=== PATIENT | male | born 1935 | race Caucasian/White ===

== ENCOUNTER 2016-11-09 13:21 | Emergency (ER) | payer OTHER ==
[2016-11-09 13:41] VITALS: RESP 16; TEMP 97.7; O2SAT 92
--- NOTE | 2016-11-09 14:03 | EDPHY ---
H & P Smoking Status: Never smoked Time Seen by Provider: 11/09/16 13:45 HPI/ROS: CHIEF COMPLAINT: Head injury, scalp laceration HISTORY OF PRESENT ILLNESS: 81-year-old male presents to the emergency department by private vehicle with closed head injury. The patient was with his son and he was caring a heavy recliner down a set of stairs any missed the last step and fell hitting the corner of a wall. He sustained a laceration to the right posterior aspect of the scalp. He did not lose consciousness. Patient does take Plavix. He denies headache. Denies neck or back pain. Denies chest pain or difficulty breathing. Denies any presyncopal symptoms prior to his fall. Denies injury to upper lower extremity. Denies abdominal pain. Last tetanus shot was March 2013. REVIEW OF SYSTEMS: Constitutional: No fever, no chills. Eyes: No double or blurry vision. ENT: No sore throat. Respiratory: No cough, no shortness of breath. Cardiac: No chest pain. Gastrointestinal: No abdominal pain, vomiting or diarrhea. Genitourinary: No dysuria. Musculoskeletal: No neck or back pain. Skin: Scalp laceration as above. No rashes. Neurological: No headache. (BettinaCorie M) Past Medical/Surgical History: Cardiac stents, orthopedic surgeries (Bettina,Corie M) Social History: and lives in [place] (Bettina,Corie M) Physical Exam: General Appearance: Alert, no distress. Mentating normally and answering questions appropriately. Eyes: Pupils equal and round. Extraocular motions are all intact. ENT: Mouth: Mucous membranes moist. Respiratory: No wheezing, rhonchi, or rales, lungs are clear to auscultation. Cardiovascular: Regular rate and rhythm. Gastrointestinal: Abdomen is soft and nontender, no masses, no rebound or guarding, bowel sounds normal. Neurological: Alert and oriented x 3, cranial nerves II through XII grossly intact Skin: 3 cm right posterior scalp laceration. Bleeding is well controlled. No palpable bony tenderness or evidence of depressed skull fracture. Warm and dry , no rashes. Musculoskeletal: Nontender to palpate along the cervical, thoracic or lumbar spine. Neck is supple. Extremities: Full range of motion and no peripheral edema. Psychiatric: Patient is oriented X 3, there is no agitation. (Indianain,Corie M) Constitutional: Initial Vital Signs Temperature (C) 36.5 C 11/09/16 13:35 Heart Rate 58 L 11/09/16 13:35 Respiratory Rate 16 11/09/16 13:35 Blood Pressure 157/92 H 11/09/16 13:35 O2 Sat (%) 92 11/09/16 13:35 O2 Delivery Mode Room Air Allergies/Adverse Reactions: oxycodone [Oxycodone] Allergy (Severe, Verified 11/09/16 13:32) Hives hydromorphone HCl [From Dilaudid] Allergy (Intermediate, Verified 11/09/16 13:32 ) Rash TO CHEST Home Medications: Medication Instructions Recorded Clopidogrel Bisulfate [Plavix (RX)] 75 mg PO DAILY 09/05/13 Ibuprofen [Motrin 200 mg (OTC)] 400 mg PO DAILY PRN 09/05/13 Atorvastatin Calcium 11/09/16 Lotran 11/09/16 Medical Decision Making - Diagnostics Imaging: CT imaging of the brain reveals no intracranial bleeding or skull fracture. This is reported to me by Dr. Duy Burroughs at 2:40 p.m. (Corie Dunbar) Procedures: Laceration repair. Verbal consent was obtained from the patient. The 4 cm laceration on the right posterior scalp was anesthetized using 1% lidocaine with epinephrine. The wound was irrigated with saline, draped and explored to its base with a gloved finger. There were no deep structures involved. The wound was repaired with 9 silvia. The wound repair was simple. The procedure was performed by myself. (Corie Dunbar) ED Course/Re-evaluation: 81-year-old male with mechanical fall presents with scalp laceration. The patient is on Plavix. I recommended CT imaging of the brain and the patient verbalized understanding and agreed. CT imaging of the brain was normal. Laceration was repaired, see procedure note. Patient was given closed-head injury precautions. He will return if he develops headache, vomiting, altered mental status, or if he seems worse in any way. (Corie Dunbar) Differential Diagnosis: Head injury including but not limited to concussion, skull fracture, intraparenchymal contusion, subarachnoid, subdural and epidural hematoma. (Corie Dunbar) Other Provider: PHYSICIAN DOCUMENTATION: The patient was evaluated and managed by the Physician Party Supply Specialist. My co- signature indicates that I have reviewed this chart and I agree with the findings and plan of care as documented. I am the secondary supervising physician. (Jf Kunz) Departure - Departure Disposition: Home, Routine, Self-Care Clinical Impression: Scalp laceration Qualifiers: Encounter type: initial encounter Qualified Code(s): S01.01XA - Laceration without foreign body of scalp, initial encounter Condition: Good Instructions: Care For Your Stitches (ED), Laceration (ED), Head Injury (ED), Acute Wound Care (ED) Additional Instructions: Wound Care Follow-Up: Removal of sutures in 7 days. Suture removal is complimentary in uncomplicated cases. Infection or abnormal findings would require reevaluation by the MD. In that case, you may be billed. Return if he developed worsening headache, vomiting, altered mental status, or if you feel worse in any way. Referrals: Macarena Garay MD [Primary Care Provider] - As per Instructions
[2016-11-09 15:10] VITALS: BP 171/95; PULSE 55
== END 2016-11-09 15:09 | disposition home or self-care (01) ==
PROC: 0HQ0XZZ Repair Scalp Skin, External Approach (ICD-10-PCS; principal; 2016-11-09)
DX: S01.01XA Laceration without foreign body of scalp, initial encounter (principal); Z95.5 Presence of coronary angioplasty implant and graft; W01.198A Fall on same level from slipping, tripping and stumbling with subsequent striking against other object, initial encounter; Y93.89 Activity, other specified